=== PATIENT | female | born 1955 | race Hispanic/Latino ===

== ENCOUNTER 2018-03-23 12:13 | Outpatient (CLI) | payer OTHER ==
--- NOTE | 2018-03-23 14:18 | Fluoroscopy Report ---
FLUOROSCOPY CYSTOGRAM VOIDING History: Diverticulum of bladder/urethra. Pain. Comparison: None. Findings: Informed consent was obtained. Sterile technique was utilized. A Blanton catheter was placed in the outpatient unit. 73 fluoroscopic images were captured during this exam. The patient could only tolerate approximately 200-250 cc of water-soluble contrast in the bladder due to discomfort. The bladder appears normal size and contour. No filling defect, wall abnormality or diverticulum is identified. No reflux into the distal ureters. Cine images were obtained during urination. The urethra appears normal course and caliber. No evidence for stricture, mass or diverticulum. There was complete emptying of the bladder during this exam. No post void residual. IMPRESSION: Normal voiding cystogram. No abnormality was detected.
== END 2018-03-23 12:14 | disposition home or self-care (01) ==
LOC: FLUORO 12:13
PROVIDERS: ATTEND Urology
DX: N32.3 Diverticulum of bladder (principal)
CPT/HCPCS: 51600; 74455; Q9958; 51702